=== PATIENT | male | born 1955 | race Two or more races ===

== ENCOUNTER 2023-05-25 01:35 | Emergency (ER) | payer OTHER ==
[~2023-05-25] VITALS: Ht 172.7 cm; Wt 185.0 kg
[2023-05-25 01:35] VITALS: O2SAT 95
[2023-05-25 02:10] LABS: Basophils # (auto) 0.1 10 ^3/uL (0-0.2); Basophils % (auto) 1.3 % (0.0-2.0); Eosinophils # (auto) 0.3 10 ^3/uL (0-0.8); Eosinophils % (auto) 4.6 % (0.0-7.0); Hematocrit 47.4 % (41.0-53.0); Hemoglobin 16.5 g/dL (13.5-17.5); Lymphocytes % (auto) 45.9 % (10.0-50.0); Mean Corpuscular Hemoglobin 32.8 pg (28.0-32.0); Mean Corpuscular Hgb Conc. 34.8 g/dL (32.0-36.0); Mean Corpuscular Volume 94.4 fL (80.0-100.0); Monocytes # (auto) 0.5 10 ^3/uL (0-1.3); Monocytes % (auto) 7.2 % (0.0-12.0); Neutrophils # (auto) 2.7 10 ^3/uL (1.6-8.6); Nucleated Red Blood Cells % 0.4 %; Red Blood Cells 5.02 10^6/uL (4.5-5.90); Red Cell Distribution Width 13.5 % (11.8-14.3); White Blood Cell 6.5 10^3/uL (4.4-10.8)
[2023-05-25 02:30] LABS: INR 1.01 (0.9-1.15); Partial Thromboplastin Time 26.5 SEC (24.5-34.5); Prothrombin Time 10.6 sec (9.3-11.8)
[2023-05-25 02:32] LABS: Albumin 3.9 g/dL (3.4-5.0); BUN/Creatinine Ratio 14.7 (10.0-20.0); Calcium 9.1 mg/dL (8.7-10.4); Magnesium 2.2 mg/dL (1.6-2.6); Potassium 4.4 mmol/L (3.5-5.1)
[2023-05-25 02:35] LABS: Bilirubin, Total 0.6 mg/dL (0.2-1.0); Total Protein 7.2 g/dL (6.4-8.2)
[2023-05-25 07:24] VITALS: BP 145/75; PULSE 61; RESP 18; TEMP 98.6
== END 2023-05-25 06:57 | disposition home or self-care (01) ==
LOC: ER 01:38
DX: R00.2 Palpitations (principal); I49.3 Ventricular premature depolarization; E78.5 Hyperlipidemia, unspecified; I10 Essential (primary) hypertension; R06.02 Shortness of breath; Z79.899 Other long term (current) drug therapy; Z79.01 Long term (current) use of anticoagulants
CPT/HCPCS: 36415; 71045; 80053; 83735; 83880; 84443; 84484; 85025; 85610; 85730; 93005

== ENCOUNTER 2024-12-13 17:14 | Inpatient (IN) | payer OTHER ==
[~2024-12-13] VITALS: Ht 172.7 cm; Wt 89.3 kg
[2024-12-13] VITALS (9 sets, daily range): BP systolic 108–140; BP diastolic 73–85; PULSE 57–74; RESP 14–19; TEMP 98–98.1; O2SAT 91–100
--- NOTE | 2024-12-13 17:20 | ED.PDOC ---
HPI Comments 69-year-old male with PMHx CAD, PTCA, Hypothyroidism, HTN brought in by EMS presents with a chief complaint of chest pain onset x 2 hours ago. Patient states that his pain is localized to his sternal chest, radiating to his bilateral arms, and describes as burning/pressure sensation. Patient states that he was at rest when onset of symptoms began and thought it was indigestion so he took some baking soda and also 324mg ASA. Patient has previous stents placed at [place]. EKG was sent to Dr. Gutierrez, on-call STEMI provider, and Dr. Gutierrez confirmed that EKG shows acute AR. CODE STEMI was called overhead, cath lab tech team present at EMS [facility] with ER provider. Time Seen by MD: 17:12 Reviewed Notes: Medications, Allergies Allergies: Coded Allergies: NO KNOWN ALLERGIES (Unverified , 05/25/23) Information Source: Patient, Emergency Med Personnel Mode of Arrival: EMS Severity: Moderate Timing: Hours Duration: Since onset Prehospital treatment: ASA (324mg) Location: Substernal Radiation: Arm (R), Arm (L) Quality: Pressure, Burning Onset: At Rest Cardiac Risk Factors: HTN PE Risk Factors: None History of: Similar pain in past, Aspirin, Other (CAD) Past Medical History PAST MEDICAL HISTORY: CAD, High Lipids, Thyroid Surgical History: PTCA Family History Family History: Reviewed,noncontributory to illness Social History Smoker: Non-Smoker Alcohol: Denies ETOH Use Drugs: Denies Drug Use Lives In: Home Constitutional: denies: chills, diaphoresis, fatigue, fever, malaise, sweats, weakness, others EENTM: denies: blurred vision, double vision, ear bleeding, ear discharge, ear drainage, ear pain, ear ringing, eye pain, eye redness, hearing loss, mouth pain, mouth swelling, nasal discharge, nose bleeding, nose congestion, nose pain, photophobia, tearing, throat pain, throat swelling, voice changes, others Respiratory: denies: cough, hemoptysis, orthopnea, SOB at rest, shortness of breath, SOB with excertion, stridor, wheezing, others Cardiovascular: reports: chest pain; denies: dizzy spells, diaphoresis, Dyspnea on exertion, edema, irregular heart beat, left arm pain, lightheadedness, palpitations, PND, syncope, others Gastrointestinal: denies: abdomen distended, abdominal pain, blood streaked bowels, constipated, diarrhea, dysphagia, difficulty swallowing, hematemesis, melena, nausea, poor appetite, poor fluid intake, rectal bleeding, rectal pain, vomiting, others Genitourinary: denies: burning, dysuria, flank pain, frequency, hematuria, in continence, penile discharge, penile sore, pain, testicle pain, testicle swelling, urgency, others Neurological: denies: dizziness, fainting, headache, left sided numbness, left sided weakness, numbness, paresthesia, pre-existing deficit, right sided numbness, right sided weakness, seizure, speech problems, tingling, tremors, weakness, others Musculoskeletal: denies: back pain, gout, joint pain, joint swelling, muscle pain, muscle stiffness, neck pain, others Integumetry: denies: bruises, change in color, change in hair/nails, dryness, laceration, lesions, lumps, rash, wounds, others Allergic/Immunocompromised: denies: Difficulty Healing, Frequent Infections, Hives, Itching, others Hematologic/Lymphatic: denies: anemia, blood clots, easy bleeding, easy bruising, swollen glands, others Endocrine: denies: excessive hunger, excessive sweating, excessive thirst, excessive urination, flushing, intolerance to cold, intolerance to heat, unexplained weight gain, unexplained weight loss, others Psychiatric: denies: anxiety, bipolar disorder, depression, hopeless, panic disorder, schizophrenia, sleepless, suicidal, others All Other Systems: Reviewed and Negative Physical Exam General Appearance: Moderate Distress, Normal HEENT: NOT DONE Neck: NOT DONE Respiratory: Chest Non-Tender, Lungs Clear, No Accessory Muscle Use, No Respiratory Distress, Normal Breath Sounds Cardiovascular: Other (EKG SHOWS STEMI; CONFIRMED WITH ON-CALL STEMI DOCTOR) Breast Exam: Deferred Gastrointestinal: NOT DONE Genitalia: Deferred Pelvic: Deferred Rectal: Deferred Extremities: No calf tenderness, Normal capillary refill, Normal inspection, Normal range of motion, Non-tender, No pedal edema Neurologic: Alert, senior product engineer II-XII nml as Tested, No Motor Deficits, Normal Affect, Normal Mood, No Sensory Deficits Cerebellar Function: NOT DONE Reflexes: NOT DONE Skin: Dry, Normal Color, Warm Lymphatic: NOT DONE Was a procedure done? Was a procedure done?: No CP Differential Dx Differential Diagnosis: AR, PAC's, PSVT, PVC's, Sinus Tachycardia Differential Diagnosis: HTN Essential, HTN Accelerated Differential Diagnosis: Angina, Gastritis, Myocardial Infarction Time of 1ST Reevaluation: 17:42 Reevaluation 1ST: Unchanged Patient Education/Counseling: Diagnosis, Treatment, Prognosis Family Education/Counseling: Diagnosis, Treatment, Prognosis Departure 1 Departure Time of Disposition: 17:24 (Patient presented with an acute AR. cath lab tech was emergently activated. Patient being taken to cath lab tech emergently by Dr. Gutierrez.) Impression: Primary Impression: STEMI (ST elevation myocardial infarction) Qualified Codes: I21.3 - ST elevation (STEMI) myocardial infarction of unspecified site Additional Impression: Acute chest pain Disposition: ADMITTED INPATIENT Admit to: Electrician Deck Condition: Critical Critical Care Note Critical Care Time?: Yes Critical care comment: STEMI Authorized and Performed by: Glenys Still MD Total critical care time: Approximately 33 minutes Due to a high probability of clinically significant, life threatening deterioration, the patient required my highest level of preparedness to intervene emergently and I personally spent this critical care time directly and personally managing the patient. This critical care time included obtaining a history; examining the patient; pulse oximetry; ordering and review of studies; arranging urgent treatment with development of a management plan; evaluation of patient's response to treatment; frequent reassessment; and, discussions with other providers. This critical care time was performed to assess and manage the high probability of imminent, life-threatening deterioration that could result in multi-organ failure. It was exclusive of separately billable procedures and treating other patients and teaching time. Please see my other sections and the rest of the note for further information on patient assessment and treatment. Stability Stability form required: No Heart Score Heart Score: Heart Score Response (Comments) Value History Highly Suspicious [address]-Deviation 2 Age >65 2 Risk Factors >3 or Hx ASHD 2 Troponin >3 x's Normal limit 2 Total 10 I personally scribed for GLENYS STILL MD ([email or web address]) on 12/13/24 at 17:20. Electronically submitted by Stephan Tran ([email or web address]). GLENYS STILL MD Dec 13, 2024 17:20
--- NOTE | 2024-12-13 17:24 | DVHINCON2 ---
Date Seen: Dec 13, 2024 Referring Physician MD Cheko Reason for Consultation STEMI History of Present Illness This is a 69-year-old male patient who presents to the emergency room with chief complaint of chest pain. The patient reports that the chest pain began at approximately 2:30 p.m. this afternoon. He describes it as unprovoked, constant, pressure-like in nature, and substernal without radiation. Associated symptoms include shortness of breath. The patient called EMS who was brought to the emergency room for further evaluation. While en route to the emergency room, EMS personnel obtained a cardiac strip which revealed STEMI. The patient was given 324 mg of aspirin orally once by EMS personnel. Upon emergency room arrival, a twelve lead electrocardiogram was obtained and revealed normal sinus rhythm with inferior lead ST-elevation myocardial infarction. No labs available at time of assessment given that patient was just brought in via EMS. The patient was loaded with IV heparin bolus 5000 units one time as well as a one time 300 mg of Plavix orally. Significant past medical history includes coronary artery disease status post PTCA x2 ROSALINA (on ASA), myocardial infarction, hypertension, dyslipidemia, and thyroid disease. The patient does not follow up with Cardiology in the outpatient setting. Past Medical History Past medical history reviewed. No other significant than mentioned above. Past Surgical History Denies Family History Family history reviewed. Social History Denies the use of tobacco, alcohol or illicit drugs. Allergies: Coded Allergies: NO KNOWN ALLERGIES (Unverified , 05/25/23) Home Meds Home medications reviewed. Review of Systems Constitutional: No symptom reported Ears, Nose, & Throat: No symptom reported Eyes: No symptom reported Neurological: No symptoms reported Pulmonary/Respiratory: Shortness of breath Cardiovascular: Chest pain Gastrointestinal: No symptom reported Genitourinary: No symptom reported Musculoskeletal: No symptom reported Skin: No symptom reported Psychiatric: No symptom reported Endocrine: No symptom reported Hematologic/Lymphatic: No symptom reported Physical Exam General Appearance: Cooperative. Well-developed. Well-nourished. No acute distress. Pulmonary/Respiratory: Clear, bilateral breaths sounds. Cardiovascular/Chest: Regular rate and rhythm. Peripheral Pulses: 2+ Radial (R). 2+ Radial (L). 2+ Pedal (R). 2+ Pedal (L) Abdominal Exam: Normal bowel sounds. Ankle Exam: Negative ankle edema Lower extremities: Negative lower extremity edema Neuro/Mental Status: A/OX4, coherent. Thoughts/Psych: Normal thought pattern. Appropriate mood and affect. Good judgment and insight. Appearance: No acute distress. Skin Exam: Normal inspection. Normal color. Warm and dry. Assessment Acute ST-elevation myocardial infarction, rule out progressive coronary artery disease Coronary artery disease status post PTCA x2 ROSALINA (on ASA) Rule out structural heart disease Myocardial infarction Hypertension Dyslipidemia Thyroid disease Plan/Recommendation We will continue with the following plan/recommendations (Dr. Gutierrez): Case discussed with . The patient will be emergently taken for a left heart catheterization. The procedure was discussed in full detail with the patient including possible risks and benefits. The patient is agreeable to undergo the procedure and will be taken at first available. Thank you for allowing us to care for this patient. Please call with any questions or c oncerns. Critical care time spent: 44 minutes This medical document was created using an electronic medical record system with voice recognition software and computerized dictation system. Although this document has been carefully reviewed, there might still be some phonetic and typographical errors. Occasional wrong-word or ``sound-alike substitutions may have occurred due to the inherent limitations of voice recognition software. These areas are purely typographical due to imperfections of the software programs and do not reflect any compromise in the patient's medical care. Please read the chart carefully and recognize, using context, where these substitutions have occurred. Plan discussed with: Patient NYHA Physical activity limitations: NA Date of Service: Dec 13, 2024 Billing Provider: MARK FLORES Cardiology Common Codes: 10966-DQAXFGD INP/OBS CARE (High) Cardiology Consultation Codes: 31393-[id number] CONSULT <45MIN MARK FLORES Dec 13, 2024 17:24
[2024-12-13] MEDS: NITROGLYCERIN 0.4MG/DOSE SPRAY 4.9GM ONE (17:46)
--- NOTE | 2024-12-13 17:54 | DVH ---
INDICATION: stemi TECHNIQUE: Frontal view of the chest. COMPARISON: XY CHEST PORTABLE on DOS: 05/25/23 FINDINGS: . The heart and mediastinal contours are grossly unremarkable. There is no evidence of pleural disea se. The lungs are clear. The bony structures of the chest are intact without fracture. IMPRESSION: 1. No evidence of acute disease.
--- NOTE | 2024-12-13 18:09 | DVHHP2 ---
History of Present Illness Reason for Visit: Chest Pain History of Present Illness This is a 69-year-old male patient with a PMHx of CAD s/p PCI, HTN, Dyslipidemia, and Hypothyroid who who presented to the emergency room with chief complaint of chest pain. The patient reports that the chest pain began at approximately 2:30 p.m. this afternoon. He describes it as unprovoked, constant, pressure-like in nature, and substernal without radiation. Associated symptoms include shortness of breath. The patient called EMS who was brought to the emergency room for further evaluation. While en route to the emergency room, EMS personnel obtained a cardiac strip which revealed STEMI. The patient was given 324 mg of aspirin orally once by EMS personnel. Upon emergency room arrival, a twelve lead electrocardiogram was obtained and revealed normal sinus rhythm with inferior lead ST-elevation myocardial infarction. No labs available at time of assessment given that patient was just brought in via EMS. The patient was loaded with IV heparin bolus 5000 units one time as well as a one time 300 mg of Plavix orally. Patient was emergently taken to the salvage laborer. Review of Systems Constitutional: No: Fever, Chills, Sweats, Weakness, Malaise, Other Eyes: No: Pain, Vision change, Conjunctivae inflammation, Eyelid inflammation, Other, Redness ENT: No: Ear pain, Ear discharge, Nose pain, Nose discharge, Nose congestion, Mouth pain, Mouth swelling, Throat pain, Throat swelling, Other Respiratory: No: Cough, Dry, Shortness of breath, SOB with excertion, Wheezing, Hemoptysis, Pleuritic Pain, Sputum, Wheezing, Other Cardiovascular: Chest Pain, Palpitations Gastrointestinal: No: Nausea, Vomiting, Abdominal Pain, Diarrhea, Constipation, Melena, Hematochezia, Other Genitourinary: No Dysuria, No Frequency, No Incontinence, No Hematuria, No Retention, No Other Musculoskeletal: No: other, neck pain, shoulder pain, arm pain, back pain, hand pain, leg pain, foot pain Skin: No: Rash, Lesions, Jaundice, Bruising, Other Neurological: No: Weakness, Numbness, Incoordination, Change in speech, Confusion, Seizures, Other Allergies: Coded Allergies: NO KNOWN ALLERGIES (Unverified , 05/25/23) Exam Vital Signs Vital Signs Date Time Temp Pulse Resp B/P (MAP) Pulse Ox O2 Delivery O2 Flow Rate FiO2 12/13/24 17:20 78 12/13/24 17:14 98.3 18 178/73 (108) 96 12/13/24 17:14 Room Air* 0 21 General Appearance: Alert, Oriented X3, Cooperative, moderate distress HEENT: Atraumatic Respiratory: Clear to auscultation, Normal air movement Cardiovascular: Regular rate, Normal S1, Normal S2 Abdominal: Normal bowel sounds, Soft Extremities: No clubbing Psych/Mental Status: Mental status NL Labs/Xrays Labs Test 12/13/24 17:23 Range/Units Assessment/Plan Assessment/Plan # Chest Pain due to STEMI - Emergent LHC # Hypothyroid - Resume Home Meds # HTN - Get home meds Unstable for transfer Plan discussed with: Patient My Orders Orders - JUAN ELLIOTT MD Procedure Category Date Status Time Complete Blood Count LAB 12/14/24 Verified 04:00 Comprehensive LAB 12/14/24 Verified Metabolic Panel 04:00 Atorvastatin (Lipitor) PHA 12/13/24 Transmitted 22:00 Admit ADMIT 12/13/24 Transmitted 18:04 Code Status CODE 12/13/24 Transmitted 18:04 Vital Signs GENESIS 12/13/24 Transmitted 18:04 Review Orders With GENESIS 12/13/24 Transmitted Adm. 18:04 Bedrest With Bathroom GENESIS 12/13/24 Transmitted Privileg 18:04 Regular Diet DIET 12/13/24 Transmitted Dinner Sodium Chloride Lock PHA 12/13/24 Transmitted (Saline Lock Ns) 22:00 Sodium Chloride 0.9% PHA 12/13/24 Transmitted 18:15 Lorazepam Tablet PHA 12/13/24 Transmitted (Ativan Tablet) 18:15 Acetaminophen Tablet PHA 12/13/24 Transmitted (Tylenol Tablet) 18:15 Notify Md Of Changes GENESIS 12/13/24 Transmitted From Base 18:04 Advance Directive GENESIS 12/13/24 Transmitted 18:04 Echo 2d Mode Cardiac US 12/13/24 Transmitted DOP 18:04 Urinalysis LAB 12/13/24 Transmitted 18:04 Patient Condition ORDERS 12/13/24 Transmitted 18:04 Allergies GENESIS 12/13/24 Transmitted 18:04 Hydrocodone-Acet PHA 12/13/24 Transmitted 5/325mg Tab ([place] 18:15 Ondansetron Hcl PHA 12/13/24 Transmitted (Zofran) 18:15 Morphine 2mg Iv Q4hprn PHA 12/13/24 Transmitted 18:15 Nitroglycerin PHA 12/13/24 Transmitted Sublingual (Ntrostat 18:15 Morphine Sulfate PHA 12/13/24 Transmitted Injection 18:15 Stat Ekg For Chest GENESIS 12/13/24 Transmitted Pain 18:04 Notify Md Of Changes [facility] [place] 12/13/24 Transmitted From Base 18:04 Machine Assembler For [facility] [place] 12/13/24 Transmitted 24 Hours 18:04 Emergency Dysrhythmia GENESIS 12/13/24 Transmitted Protocol 18:04 Rhythm Strips Once GENESIS 12/13/24 Transmitted Every Shift 18:04 Oxygen By Nasal RT 12/13/24 Transmitted Cannula 18:04 Date of Service: Dec 13, 2024 Billing Provider: JUAN ELLIOTT MD Common Visit Codes: [id number] INP/OBS CARE (HIGH) JUAN ELLIOTT MD Dec 13, 2024 18:09
[2024-12-13] MEDS ORDERED: NITROGLYCERIN 0.4 MG SL TAB SL PRN (18:15)
[2024-12-13] MEDS ORDERED: MORPHINE SULFATE INJ 2 MG/ml SYRG IV PRN (18:15)
[2024-12-13] MEDS ORDERED: LORazepam 0.5 MG TAB PO PRN (18:15)
[2024-12-13] MEDS ORDERED: ACETAMINOPHEN 325 MG TAB PO PRN (18:15)
[2024-12-13] MEDS ORDERED: ONDANSETRON HCL 4 MG/2 ML VIAL IV PRN (18:15)
[2024-12-13 18:22] LABS: Chloride 104 mmol/L (98-107); Potassium 4.7 mmol/L (3.5-5.1); Sodium 143 mmol/L (136-145)
[2024-12-13 18:23] LABS: Anion Gap 5 (5-15); Calcium 9.6 mg/dL (8.7-10.4)
[2024-12-13 18:25] LABS: Basophils # (auto) 0 10 ^3/uL (0-0.2); Basophils % (auto) 0.7 % (0.0-2.0); Carbon Dioxide 34 mmol/L (20-31); Eosinophils # (auto) 0.3 10 ^3/uL (0-0.8); Hematocrit 47.6 % (41.0-53.0); Hemoglobin 16.4 g/dL (13.5-17.5); Lymphocytes # (auto) 2.9 10 ^3/uL (0.4-5.4); Mean Corpuscular Hemoglobin 33.4 pg (28.0-32.0); Mean Corpuscular Hgb Conc. 34.5 g/dL (32.0-36.0); Mean Corpuscular Volume 96.8 fL (80.0-100.0); Monocytes # (auto) 0.8 10 ^3/uL (0-1.3); Monocytes % (auto) 11.1 % (0.0-12.0); Neutrophils # (auto) 2.8 10 ^3/uL (1.6-8.6); Neutrophils % (auto) 41.2 % (37.0-80.0); Nucleated Red Blood Cells % 0.3 %; Platelet Count (auto) 137 10^3/uL (140-450); Red Blood Cells 4.92 10^6/uL (4.5-5.90); Red Cell Distribution Width 13.4 % (11.8-14.3); White Blood Cell 6.8 10^3/uL (4.4-10.8)
[2024-12-13 18:28] LABS: BUN/Creatinine Ratio 15.9 (10.0-20.0); Blood Urea Nitrogen 20 mg/dL (9-23)
[2024-12-13 18:29] LABS: Glucose 118 mg/dL (74-106)
[2024-12-13 18:42] LABS: Partial Thromboplastin Time 24.7 SEC (24.5-34.5); Prothrombin Time 10.6 sec (9.3-11.8)
--- NOTE | 2024-12-13 18:53 | ECG ---
[facility] Test Date: 2024-12-13 Test Time: 17:15:25 Pat Name: KRISHAN ARNETT Department: ED Room: 0279T Gender: M Vp Integrity: KAVITA : 1955 Requested By: GLENYS BARRAZA Order Number: [id number] Reading MD: Haseeb Gutierrez Measurements Intervals [place] Rate: 78 P: 77 GA: 146 QRS: -48 QRSD: 104 T: 90 QT: 390 QTc: 445 Interpretive Statements Sinus rhythm Ventricular premature complex Abnormal R-wave progression, late transition Inferior infarct, acute (RCA) Lateral leads are also involved Probable RV involvement, suggest recording right precordial leads Electronically Signed On 12-16-2024 19:02:11 PDT by Haseeb Gutierrez Please click the below link to view image of tracing.
--- NOTE | 2024-12-13 19:16 | DVHOP2 ---
Operative Report - 2 Report Details Date: 12/13/24 Preop Diagnosis: Acute ST-elevation myocardial infarction Postop Diagnosis: PTCA and stenting of the circumflex and LAD. Intravascular ultrasound evaluation of the circumflex and LAD. Surgeon: Delicia Gutierrez MD Anesthesiologist: Conscious sedation Anesthesia: Mac, Local (Versed and fentanyl were ordered for the patient. Personally supervised the administration and monitor the patient throughout the entirety of the procedure) Consent: The patient was informed of the risks and benefits of the procedure. These include but are not limited to complications of anesthesia, postoperative infection, incomplete relief of symptoms, recurrence of symptoms, damage to blood vessels, nerves and tendons, deep venous thrombosis, pulmonary embolism and possible need for repeat surgery in the future. Complications: No complications Estimated Blood Loss: 10 cc Findings: CAD Indications for Surgery: Acute NH. Chest pain. Name of Procedure Performed Left heart catheterization bilateral cine coronary angiography and left ventriculography. Intravascular ultrasound evaluation of the left anterior descending coronary artery and circumflex coronary artery. Procedure Details Procedure Details: Prior local anesthesia with 2% lidocaine to the right wrist and full informed consent obtained the patient was prepped and draped in usual fashion followed by placement of a six [place] Islander sheath into the right radial artery through which a 3.5 EBU guide was used for angiography and cannulation both right coronary ostium as well as ventriculography. No complications. Angioplasty was performed with the same guide as will be delineated below. Hemodynamics: Aortic blood pressure was 130/70. End-diastolic pressure was 10. There was no gradient across the aortic valve on pullback. Coronary anatomy the RCA is a large vessel. It tapers down to a small to medium vessel in the posterolateral and PDA. Notable disease noted in the PDA and posterolateral branches this is small not amenable to angioplasty. The RCA in its proximal mid and distal segments are otherwise free of significant disease with only moderate plaquing. The left main is large. Angiographic appears normal. The circumflex has an ostial 50-60% stenosis. The mid circumflex at the marginal branch has a 99% stenosis with a ruptured plaque. The circumflex proper ends distally in the AV groove. The left anterior descending coronary artery is in stent restenosis in its proximal portion with an ostial lesion of about 70-80% and a in stent restenosis in the proximal LAD of about 75-80%. Intravascular ultrasound device from [employer] was used to assess the circumflex and left anterior descending coronary arteries. We also assessed the left mainstem since there was dampening of the left main pressures with a six [place]er guide. Minimal lumen diameter of the left main was 5.8 cm squared. Lesion in the circumflex and LAD were also evaluated and found to be significant. Ventriculography was performed in the GAMEZ projection. Overall estimated ejection fraction is about 55% We opted to pre dilate the lesion in the circumflex with a 2.5 mm x 20 mm Medtronic balloon. At approximately 12 atmospheres with excellent results. We then placed a 3-0 by 22 mm stent into the circumflex. There was excellent results. Upon pulling the balloon noticed that there was a lesion ostial circumflex considered to be a proximally 75-80% stenosis. We then placed a 3-0 by 12 mm stent into ostium of the circumflex. This pushed plaque into the left anterior descending for which we then placed a altered vascular ultrasound in the LAD and noticed that there was significant residual recoil and restenosis of the LAD at the ostial level. We then did a balloon kissing technique by placing a 3-0 by 12 mm stent into the LAD and placing a noncompliant balloon into the circumflex. These were inflated to approximately 13 atmospheres each. There was excellent antegrade flow without thrombus formation under dissection. Impression: Normal left ventricular end-diastolic pressure at rest normal ejection fraction. Two-vessel CAD as delineated above with restenosis of the LAD and a ruptured plaque mid circumflex. Residual lesion in the ostial circumflex requiring kissing balloon technique stenting of the LAD and circumflex. Atherotomy of the proximal LAD with InStent restenosis with the [employer]io[employer] balloon. Recommendations: Dual antiplatelet therapy. Lipid-lowering therapy. Risk factor modification to continue. Condition Good Disposition Still a Patient Date of Service: Dec 13, 2024 Billing Provider: DELICIA GUTIERREZ Sr., MD Cardiology Common Codes: 03189-SEXPREU INP/OBS CARE (High) Cardiology Procedure Codes: 97334-EBCYUA VESSEL W/I VASC FAM, 02916 -PTCA W/STENT PLACEMENT, 65774-NWGX ADD CORONARY BRANCH, 58470-JVNA FOR STEMI W/STENT, 69138-VXEB HEART CATH W/INTRA INJ DELICIA GUTIERREZ Sr., MD Dec 13, 2024 19:16
[2024-12-13] MEDS: SODIUM CHLORIDE 0.9% 1,000 ML IV SCH (20:10)
[2024-12-13] MEDS: ATORVASTATIN 20 MG TAB PO SCH (20:56)
[2024-12-13] MEDS: HYDROcodone-ACET 5/325MG TAB PO PRN (20:57)
[2024-12-13] MEDS: MORPHINE SULFATE INJ 2 MG/ml SYRG IV PRN (22:04)
[2024-12-13] MEDS: SODIUM CHLOR 0.9% PF (SALINE LOCK) 10ML VIAL/SYR IV SCH (22:15)
--- NOTE | 2024-12-13 22:53 | ECG ---
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
[2024-12-13 22:54] LABS: Urine Bacteria None Seen /hpf (None Seen)
[2024-12-13 23:15] LABS: Urine Blood Negative /uL (Negative); Urine Clarity Clear (Clear); Urine Color Light-Yellow (Yellow); Urine Protein, UAD 1+ (Negative); Urine Squamous Epithelial Cell None Seen /hpf (<5); Urine Urobilinogen Normal (Negative); Urine WBC < 1 /HPF (0-3); Urine pH 8.5 (5.0-9.0)
[2024-12-13 23:17] LABS: Urine Specific Gravity > 1.050 (1.001-1.035)
[2024-12-13] MEDS: FAMOTIDINE (10MG/ML) 2ML VL IV ONE (23:44)
[2024-12-13] MEDS: cloNIDine HCL 0.1 MG TAB PO ONE (23:51)
[2024-12-14] VITALS (12 sets, daily range): BP systolic 109–157; BP diastolic 64–87; PULSE 55–63; RESP 17–20; TEMP 97.9–98.7; O2SAT 96–100
[2024-12-14] MEDS ORDERED: TERA10CA36 PO (03:13)
[2024-12-14] MEDS ORDERED: ASPI1TAB20 PO (03:13)
[2024-12-14] MEDS ORDERED: LEVO112T4 PO (03:13)
[2024-12-14 07:32] LABS: Alkaline Phosphatase 55 U/L (46-116); Anion Gap 5 (5-15); BUN/Creatinine Ratio 12.8 (10.0-20.0); Blood Urea Nitrogen 14 mg/dL (9-23); Calcium 9.3 mg/dL (8.7-10.4); Carbon Dioxide 28 mmol/L (20-31); Chloride 106 mmol/L (98-107); Glucose 98 mg/dL (74-106); Potassium 4.5 mmol/L (3.5-5.1); Sodium 139 mmol/L (136-145); Total Protein 6.6 g/dL (5.7-8.2)
[2024-12-14 07:33] LABS: Bilirubin, Total 0.5 mg/dL (0.2-1.0)
[2024-12-14 07:35] LABS: Alanine Aminotransferase 44 U/L (7-40); Aspartate Aminotransferase 232 U/L (13-40)
[2024-12-14 07:38] LABS: Basophils # (auto) 0.1 10 ^3/uL (0-0.2); Basophils % (auto) 0.9 % (0.0-2.0); Eosinophils # (auto) 0.2 10 ^3/uL (0-0.8); Eosinophils % (auto) 3.7 % (0.0-7.0); Hemoglobin 15.5 g/dL (13.5-17.5); Lymphocytes # (auto) 2.1 10 ^3/uL (0.4-5.4); Lymphocytes % (auto) 32.8 % (10.0-50.0); Mean Corpuscular Hemoglobin 33.3 pg (28.0-32.0); Mean Corpuscular Hgb Conc. 34.5 g/dL (32.0-36.0); Mean Corpuscular Volume 96.4 fL (80.0-100.0); Monocytes # (auto) 0.7 10 ^3/uL (0-1.3); Monocytes % (auto) 11.2 % (0.0-12.0); Neutrophils # (auto) 3.3 10 ^3/uL (1.6-8.6); Neutrophils % (auto) 51.4 % (37.0-80.0); Nucleated Red Blood Cells % 0.1 %; Platelet Count (auto) 114 10^3/uL (140-450); Red Blood Cells 4.66 10^6/uL (4.5-5.90); White Blood Cell 6.4 10^3/uL (4.4-10.8)
[2024-12-14] MEDS: CLOPIDOGREL BISULFATE 75 MG TAB PO ONE (09:32)
[2024-12-14] MEDS: HEPARIN SODIUM (PORCINE) 5000 UNITS/ML 1ML VIAL IV ONE (09:32)
[2024-12-14] MEDS: ASPirin 81 mg TAB PO SCH (09:32)
[2024-12-14] MEDS: LISINOPRIL 5 MG TAB PO SCH (09:41)
[2024-12-14] MEDS: CLOPIDOGREL BISULFATE 75 MG TAB PO SCH (09:42)
[2024-12-14] MEDS: METOPROLOL SUCCINATE XL 50 MG TAB PO SCH (09:42)
--- NOTE | 2024-12-14 17:39 | DVHPN2 ---
Progress Note Date Seen: Dec 14, 2024 Medical Necessity Reason Pt with a Central, PICC or Fol: No Subjective Patient reports: No new complaints Review of Systems: HEENT:Normal, CVS:Normal, RESPIRATORY:Normal, GI:Normal, :Normal, MSK:Normal, NEURO:Normal Objective vital signs Vital Sign Date Time Temp Pulse Resp B/P (MAP) Pulse Ox O2 Delivery O2 Flow Rate FiO2 12/14/24 16:33 98.6 56 18 109/69 (82) 100 98.6 12/14/24 08:30 Nasal Cannula* 2 28 Total Intake and Output 12/13/24 12/13/24 12/14/24 15:00 23:00 07:00 Intake Total 500 ml Balance 500 ml medications Current Medications Medications Dose Ordered Sig/Colby Route Start Time Stop Time Status Last Admin Dose Admin Atorvastatin Calcium 80 mg HS PO 12/13/24 22:00 12/13/24 20:56 80 MG Sodium Chloride 10 ml Q8HR IV 12/13/24 22:00 12/14/24 14:44 10 ML Sodium Chloride 1,000 ml @ 60 mls/hr [id number] IV 12/13/24 18:15 12/13/24 20:10 60 MLS/HR Lorazepam 0.5 mg Q6HP PRN PO 12/13/24 18:15 Acetaminophen 650 mg Q6HP PRN PO 12/13/24 18:15 Acetaminophen/ Hydrocodone Bitart 1 tab Q4HP PRN PO 12/13/24 18:15 12/13/24 20:57 1 TAB Ondansetron HCl 4 mg Q4HP PRN IV 12/13/24 18:15 Morphine Sulfate 2 mg Q4HPRN PRN IV 12/13/24 18:15 12/13/24 22:04 2 MG Nitroglycerin 0.4 mg Q5MINP PRN SL 12/13/24 18:15 Morphine Sulfate 2 mg Q30M PRN IV 12/13/24 18:15 Clopidogrel Bisulfate 75 mg DAILY PO 12/14/24 10:00 12/14/24 09:42 75 MG Aspirin 81 mg DAILY PO 12/14/24 10:00 12/14/24 09:32 81 MG Metoprolol Succinate 25 mg DAILY PO 12/14/24 10:00 12/14/24 09:42 25 MG Lisinopril 5 mg DAILY PO 12/14/24 10:00 12/14/24 09:41 5 MG Examination: GENERAL:Normal, HEENT:Normal, NECK:Normal, LUNGS:Normal, CVS:Normal, ABDOMEN:Normal, MSK:Normal, SKIN:Normal, NEURO:Normal, :Normal laboratory and microbiology Laboratory Tests 12/14/24 06:48 Test 12/14/24 06:48 Range/Units Serum Glucose 98 74-106 mg/dL Problem List/Assessment/Plan Problem List/Assessment/Plan #1 acute mi s/p stents: cont meds #2 h/o cad/stents #3 htn #4 hypothyroidism: check tsh #5 hyperlipidemia #6 ?bph: on hytrin #7 transaminitis #8 acute resp failure: wean as tolerated advance care planning- full code- time spent 19 mins Plan discussed with: Patient My Orders My Orders Orders - FAN LEACH MD Procedure Category Date Status Time Cardiac DIET 12/14/24 Verified Diet-2gna,Lofat,Lochol Dinner Levothyroxine Tablet PHA 12/15/24 Verified (Synthroid Tablet) 06:00 Terazosin Hcl (Hytrin) PHA 12/14/24 Verified 22:00 Complete Blood Count LAB 12/15/24 Verified 06:00 Comprehensive LAB 12/15/24 Verified Metabolic Panel 06:00 Thyroid Stimulating LAB 12/15/24 Verified Hormone 05:00 Lipid Panel LAB 12/15/24 Verified 06:00 Date of Service: Dec 14, 2024 Billing Provider: FAN LEACH MD Common Visit Codes: [id number] INP/OBS CARE(HIGH) Secondary Visit Codes: [id number] CARE PLAN 30 MINUTES FAN LEACH MD Dec 14, 2024 17:39
--- NOTE | 2024-12-14 18:26 | DVHPN2 ---
Consult Progress Note Subjective Other Systems: Patient in normal sinus rhythm on front desk monitor. Patient reports intermittent episodes of chest pain Objective vital signs Vital Sign Date Time Temp Pulse Resp B/P (MAP) Pulse Ox O2 Delivery O2 Flow Rate FiO2 12/14/24 16:33 98.6 56 18 109/69 (82) 100 98.6 12/14/24 08:30 Nasal Cannula* 2 28 Total Intake and Output 12/13/24 12/13/24 12/14/24 15:00 23:00 07:00 Intake Total 500 ml Balance 500 ml medications Current Medications Medications Dose Ordered Sig/Colby Route Start Time Stop Time Status Last Admin Dose Admin Atorvastatin Calcium 80 mg HS PO 12/13/24 22:00 12/13/24 20:56 80 MG Sodium Chloride 10 ml Q8HR IV 12/13/24 22:00 12/14/24 14:44 10 ML Lorazepam 0.5 mg Q6HP PRN PO 12/13/24 18:15 Acetaminophen 650 mg Q6HP PRN PO 12/13/24 18:15 Acetaminophen/ Hydrocodone Bitart 1 tab Q4HP PRN PO 12/13/24 18:15 12/13/24 20:57 1 TAB Ondansetron HCl 4 mg Q4HP PRN IV 12/13/24 18:15 Morphine Sulfate 2 mg Q4HPRN PRN IV 12/13/24 18:15 12/13/24 22:04 2 MG Nitroglycerin 0.4 mg Q5MINP PRN SL 12/13/24 18:15 Morphine Sulfate 2 mg Q30M PRN IV 12/13/24 18:15 Clopidogrel Bisulfate 75 mg DAILY PO 12/14/24 10:00 12/14/24 09:42 75 MG Aspirin 81 mg DAILY PO 12/14/24 10:00 12/14/24 09:32 81 MG Metoprolol Succinate 25 mg DAILY PO 12/14/24 10:00 12/14/24 09:42 25 MG Lisinopril 5 mg DAILY PO 12/14/24 10:00 12/14/24 09:41 5 MG Levothyroxine Sodium 112 mcg QAM@0600 PO 12/15/24 06:00 Terazosin HCl 10 mg HS PO 12/14/24 22:00 Examination: GENERAL:Normal, LUNGS:Normal, CVS:Normal, NEURO:Normal laboratory and microbiology Laboratory Tests 12/14/24 06:48 Test 12/14/24 06:48 Range/Units Serum Glucose 98 74-106 mg/dL Problem List/Assessment/Plan Problem List/Assessment/Plan Acute ST-elevation myocardial infarction, status PTCA x2 ROSALINA Coronary artery disease status post PTCA x2 ROSALINA (on ASA) Rule out structural heart disease Myocardial infarction Hypertension Dyslipidemia Thyroid disease Plan/Recommendation (Dr. Gutierrez): Case discussed with . We will obtain a transthoracic echocardiogram to evaluate cardiac function. The patient who came in as a STEMI underwent an emergent coronary angiogram in which two drug-eluting stents were placed (to circumflex and LAD). At the time of assessment, the patient reports that he has been intermittently experiencing chest pain. Given recent coronary angiogram, patient likely experiencing acute pericarditis. We will give patient a trial of Toradol to assess if it improves patients pain. In the meantime, continue with dual antiplatelet therapy, lipid-lowering agent, beta-francisco j, and ACEi. Thank you for allowing us to care for this patient. Please call with any questions or concerns. This medical document was created using an electronic medical record system with voice recognition software and computerized dictation system. Although this document has been carefully reviewed, there might still be some phonetic and typographical errors. Occasional wrong-word or ``sound-alike substitutions may have occurred due to the inherent limitations of voice recognition software. These areas are purely typographical due to imperfections of the software programs and do not reflect any compromise in the patient's medical care. Please read the chart carefully and recognize, using context, where these substitutions have occurred. Plan discussed with: Patient Date of Service: Dec 14, 2024 Billing Provider: MARK FLORES Common Visit Codes: [id number] INP/OBS CARE(HIGH) MARK FLORES Dec 14, 2024 18:26
[2024-12-14] MEDS ORDERED: KETOROLAC TROMETH 30 MG/ML 1ML VIAL IV PRN (18:30)
--- NOTE | 2024-12-14 18:49 | DVHSR ---
APPROVED REPORT EXAM: Two-dimensional and M-mode echocardiogram with Doppler and color Doppler. Blood Pressure: 129/81 mmHg INDICATION STEMI RISK FACTORS Height: 5'8", Weight: 192 DIMENSIONS LVDd4.5 (3.8-5.7cm)LA (2D)3.0 (1.9-4.0cm)Aortic Root2.9 (2.0-3.7cm) LVDs3.4 (2.5-4.0cm)LA (MM) (1.9-4.0cm)Aortic Cusp Exc1.6 (1.5-2.0cm) EF (%) 47.0 (55-70%)Rt. Atrium4.1 (1.9-4.0cm)Asc. Aorta3.3 cm IVSd1.1 (0.7-1.1cm)RV (D)2.9 (1.8-2.4cm) PWd0.9 (0.7-1.1cm) Mitral Valve MitralMitral Stenosis E wave0.73m/sMV Mean GR.mmHg A wave0.80m/sMV Peak GR.mmHg E/A ratio0.92D MVAcm2 DECEL [id number] 1/2 Timems Aortic Valve Aortic ValveAortic Stenosis V11.16m/Kayden Mean GR.5mmHg V21.58m/Kayden Peak GR.10mmHg LVOT Diameter2.0 (1.8-2.4cm)Doppler AVA2.31cm2 Pulmonic Valve V21.21m/s Other Information Quality : Technically LimitedRhythm : Technically limited study due to body habitus. Conclusion Normal LV size. Mildly reduced LV systolic function. LVEF 45-50%. Hypokinesis of inferior and inferol ateral ruelas. Grade 1 diastolic dysfunction. Normal RV size and systolic function. No significant valvular disease. Trace PI. Normal IVC. No pericardial effusion.
[2024-12-14] MEDS: TERAZOSIN HCL 5 MG CAP PO SCH (21:45)
[2024-12-15 01:00] VITALS: BP 112/65; PULSE 58; RESP 18; TEMP 98.2; O2SAT 95
[2024-12-15 05:00] VITALS: BP 115/67; PULSE 61; RESP 18; TEMP 98.3; O2SAT 96
[2024-12-15] MEDS: LEVOTHYROXINE SODIUM 112 MCG TAB PO SCH (05:24)
[2024-12-15 05:53] LABS: Basophils # (auto) 0 10 ^3/uL (0-0.2); Basophils % (auto) 0.7 % (0.0-2.0); Eosinophils # (auto) 0.3 10 ^3/uL (0-0.8); Eosinophils % (auto) 4.5 % (0.0-7.0); Hematocrit 42.8 % (41.0-53.0); Hemoglobin 14.8 g/dL (13.5-17.5); Lymphocytes # (auto) 2.3 10 ^3/uL (0.4-5.4); Lymphocytes % (auto) 34.4 % (10.0-50.0); Mean Corpuscular Hemoglobin 33.9 pg (28.0-32.0); Mean Corpuscular Hgb Conc. 34.6 g/dL (32.0-36.0); Monocytes # (auto) 0.7 10 ^3/uL (0-1.3); Monocytes % (auto) 10.2 % (0.0-12.0); Neutrophils # (auto) 3.3 10 ^3/uL (1.6-8.6); Neutrophils % (auto) 50.2 % (37.0-80.0); Platelet Count (auto) 105 10^3/uL (140-450); Red Blood Cells 4.37 10^6/uL (4.5-5.90); White Blood Cell 6.6 10^3/uL (4.4-10.8)
[2024-12-15 06:12] LABS: Alanine Aminotransferase 39 U/L (7-40); Albumin 3.9 g/dL (3.2-4.8); Alkaline Phosphatase 49 U/L (46-116); Anion Gap 8 (5-15); BUN/Creatinine Ratio 11.9 (10.0-20.0); Bilirubin, Total 0.7 mg/dL (0.2-1.0); Blood Urea Nitrogen 13 mg/dL (9-23); Calcium 9.5 mg/dL (8.7-10.4); Carbon Dioxide 24 mmol/L (20-31); Glucose 94 mg/dL (74-106); Potassium 4.5 mmol/L (3.5-5.1); Sodium 139 mmol/L (136-145); Total Protein 6.4 g/dL (5.7-8.2)
[2024-12-15 06:18] LABS: Aspartate Aminotransferase 144 U/L (13-40); Chloride 107 mmol/L (98-107); Cholesterol 209 mg/dL (< 200); HDL Cholesterol 35 mg/dL (40-59); LDL Cholesterol 151 mg/dL (< 100); Triglycerides 187 mg/dL (< 150)
[2024-12-15 08:05] VITALS: PULSE 55
[2024-12-15 09:03] VITALS: BP 122/73; PULSE 56; RESP 16; TEMP 98; O2SAT 96
--- NOTE | 2024-12-15 11:44 | DVHPN2 ---
Consult Progress Note Subjective Patient reports: Feels better Other Systems: Patient in sinus bradycardia on hospital monitor. Denies any cardiac symptoms at time of assessment Objective vital signs Vital Sign Date Time Temp Pulse Resp B/P (MAP) Pulse Ox O2 Delivery O2 Flow Rate FiO2 12/15/24 10:05 122/73 12/15/24 10:00 54 12/15/24 09:03 98.0 16 96 98.0 12/15/24 08:05 Nasal Cannula* 2 28 Total Intake and Output 12/14/24 12/14/24 12/15/24 15:00 23:00 07:00 Intake Total 540 ml 230 ml Output Total 250 ml 475 ml Balance -250 ml 65 ml 230 ml medications Current Medications Medications Dose Ordered Sig/Colby Route Start Time Stop Time Status Last Admin Dose Admin Atorvastatin Calcium 80 mg HS PO 12/13/24 22:00 12/14/24 21:48 80 MG Sodium Chloride 10 ml Q8HR IV 12/13/24 22:00 12/15/24 05:24 10 ML Lorazepam 0.5 mg Q6HP PRN PO 12/13/24 18:15 Acetaminophen 650 mg Q6HP PRN PO 12/13/24 18:15 Ondansetron HCl 4 mg Q4HP PRN IV 12/13/24 18:15 Morphine Sulfate 2 mg Q4HPRN PRN IV 12/13/24 18:15 12/13/24 22:04 2 MG Nitroglycerin 0.4 mg Q5MINP PRN SL 12/13/24 18:15 Morphine Sulfate 2 mg Q30M PRN IV 12/13/24 18:15 Clopidogrel Bisulfate 75 mg DAILY PO 12/14/24 10:00 12/15/24 10:04 75 MG Aspirin 81 mg DAILY PO 12/14/24 10:00 12/15/24 10:04 81 MG Metoprolol Succinate 25 mg DAILY PO 12/14/24 10:00 12/14/24 09:42 25 MG Lisinopril 5 mg DAILY PO 12/14/24 10:00 12/15/24 10:05 5 MG Levothyroxine Sodium 112 mcg QAM@0600 PO 12/15/24 06:00 12/15/24 05:24 112 MCG Terazosin HCl 10 mg HS PO 12/14/24 22:00 3/13/25 21:45 10 MG Ketorolac Tromethamine 15 mg Q6HPRN PRN IV 12/14/24 18:30 12/19/24 18:29 Examination: GENERAL:Normal, LUNGS:Normal, CVS:Normal, NEURO:Normal laboratory and microbiology Laboratory Tests 12/15/24 05:19 Test 12/15/24 05:19 Range/Units Serum Glucose 94 74-106 mg/dL Problem List/Assessment/Plan Problem List/Assessment/Plan Acute ST-elevation myocardial infarction, status PTCA x2 ROSALINA Coronary artery disease status post PTCA x2 ROSALINA (on ASA) Acute on chronic HFmrEF, NYHA class II Myocardial infarction Hypertension Dyslipidemia Thyroid disease Plan/Recommendation (Dr. Gutierrez): Case discussed with . Transthoracic echocardiogram reveals an EF of 45- 50% with hypokinesis of the inferior and inferolateral ruelas. The patient who came in as a STEMI underwent an emergent coronary angiogram in which two drug- eluting stents were placed (to circumflex and LAD). Continue with dual antiplatelet therapy, lipid-lowering agent, beta-francisco j, and ACEi. There is no further inpatient cardiac workup indicated at this time. The patient states he will follow up with a wheel setter within the [facility]. Patient educated to follow up with a wheel setter within 1-2 weeks post discharge. The patient verbalized understanding. Thank you for allowing us to care for this patient. Please call with any questions or concerns. This medical document was created using an electronic medical record system with voice recognition software and computerized dictation system. Although this document has been carefully reviewed, there might still be some phonetic and typographical errors. Occasional wrong-word or ``sound-alike substitutions may have occurred due to the inherent limitations of voice recognition software. These areas are purely typographical due to imperfections of the software programs and do not reflect any compromise in the patient's medical care. Please read the chart carefully and recognize, using context, where these substitutions have occurred. Plan discussed with: Patient Date of Service: Dec 15, 2024 Billing Provider: MARK FLORES Common Visit Codes: [id number] INP/OBS CARE(HIGH) MARK FLORES Dec 15, 2024 11:44
[2024-12-15 13:00] VITALS: BP 123/76; PULSE 54; RESP 18; TEMP 97.8; O2SAT 97
[2024-12-15] MEDS ORDERED: LISI-275 PO (13:18)
[2024-12-15] MEDS ORDERED: METO-6 PO (13:18)
[2024-12-15] MEDS ORDERED: CLOP75TA70 PO (13:18)
[2024-12-15] MEDS ORDERED: ATOR20TA50 PO (13:18)
--- NOTE | 2024-12-15 13:18 | DVHDS2 ---
Discharge Summary Date of Admission Dec 13, 2024 at 18:04 Date of Discharge: Dec 15, 2024 Admitting Diagnosis STEMI Labs/Diagnostic Data: Laboratory Results Test 12/15/24 05:19 12/13/24 23:23 12/13/24 22:25 12/13/24 17:23 White Blood Count 6.6 10^3/uL (4.4-10.8) Red Blood Count 4.37 10^6/uL (4.5-5.90) Hemoglobin 14.8 g/dL (13.5-17.5) Hematocrit 42.8 % (41.0-53.0) Mean Corpuscular Volume 98.0 fL (80.0-100.0) Mean Corpuscular Hemoglobin 33.9 pg (28.0-32.0) Mean Corpuscular Hemoglobin Concent 34.6 g/dL (32.0-36.0) Red Cell Distribution Width 13.0 % (11.8-14.3) Platelet Count 105 10^3/uL (140-450) Mean Platelet Volume 9.0 fL (6.9-10.8) Neutrophils (%) (Auto) 50.2 % (37.0-80.0) Lymphocytes (%) (Auto) 34.4 % (10.0-50.0) Monocytes (%) (Auto) 10.2 % (0.0-12.0) Eosinophils (%) (Auto) 4.5 % (0.0-7.0) Basophils (%) (Auto) 0.7 % (0.0-2.0) Neutrophils # (Auto) 3.3 10 ^3/uL (1.6-8.6) Lymphocytes # (Auto) 2.3 10 ^3/uL (0.4-5.4) Monocytes # (Auto) 0.7 10 ^3/uL (0-1.3) Eosinophils # (Auto) 0.3 10 ^3/uL (0-0.8) Basophils # (Auto) 0 10 ^3/uL (0-0.2) Nucleated Red Blood Cells 0.0 % Sodium Level 139 mmol/L (136-145) Potassium Level 4.5 mmol/L (3.5-5.1) Chloride Level 107 mmol/L (98-107) Carbon Dioxide Level 24 mmol/L (20-31) Anion Gap 8 (5-15) Blood Urea Nitrogen 13 mg/dL (9-23) Creatinine 1.09 mg/dL (0.700-1.30) Glomerular Filtration Rate Calc 74 mL/min (>90) BUN/Creatinine Ratio 11.9 (10.0-20.0) Serum Glucose 94 mg/dL (74-106) Calcium Level 9.5 mg/dL (8.7-10.4) Total Bilirubin 0.7 mg/dL (0.2-1.0) Aspartate Amino Transferase (AST) 144 U/L (13-40) Alanine Aminotransferase (ALT) 39 U/L (7-40) Alkaline Phosphatase 49 U/L (46-116) Total Protein 6.4 g/dL (5.7-8.2) Albumin 3.9 g/dL (3.2-4.8) Triglycerides Level 187 mg/dL (< 150) Cholesterol Level 209 mg/dL (< 200) LDL Cholesterol 151 mg/dL (< 100) HDL Cholesterol 35 mg/dL (40-59) Thyroid Stimulating Hormone (TSH) 1.11 uIU/mL (0.55-4.78) Troponin I High Sensitivity 37046 ng/L (</=54) Urine Color Light-yellow (Yellow) Urine Clarity Clear (Clear) Urine pH 8.5 (5.0-9.0) Urine Specific [place] > 1.050 (1.001-1.035) Urine Protein 1+ (Negative) Urine Ketones 1+ (Negative) Urine Blood Negative /uL (Negative) Urine Nitrite Negative (Negative) Urine Bilirubin Negative (Negative) Urine Urobilinogen Normal mg/dL (Negative) Urine Leukocyte Esterase Negative /uL (Negative) Urine RBC 1 /hpf (0 - 3) Urine Microscopic WBC < 1 /HPF (0-3) Urine Squamous Epithelial Cells None seen /hpf (<5) Urine Bacteria None seen /hpf (None Seen) Urine Glucose Normal mg/dL (Normal) Prothrombin Time 10.6 sec (9.3-11.8) Prothrombin Time INR 1.00 (0.9-1.15) Activated Partial Thromboplast Time 24.7 SEC (24.5-34.5) B-Type Natriuretic Peptide 29.50 pg/mL (0-100) Other Laboratory Tests 12/15/24 05:19 Brief Hx & Hospital Course: History of Present Illness This is a 69-year-old male patient with a PMHx of CAD s/p PCI, HTN, Dyslipidemia, and Hypothyroid who who presented to the emergency room with chief complaint of chest pain. The patient reports that the chest pain began at approximately 2:30 p.m. this afternoon. He describes it as unprovoked, constant, pressure-like in nature, and substernal without radiation. Associated symptoms include shortness of breath. The patient called EMS who was brought to the emergency room for further evaluation. While en route to the emergency room, EMS personnel obtained a cardiac strip which revealed STEMI. The patient was given 324 mg of aspirin orally once by EMS personnel. Upon emergency room arrival, a twelve lead electrocardiogram was obtained and revealed normal sinus rhythm with inferior lead ST-elevation myocardial infarction. No labs available at time of assessment given that patient was just brought in via EMS. The patient was loaded with IV heparin bolus 5000 units one time as well as a one time 300 mg of Plavix orally. Patient was emergently taken to the label stitcher. Course of Hospitalization: Patient had PTCA and Stent Placement to LAD and CX artery with CX being culprit lesion causing STEMI. Post op, the patient has had been pain free. EF on echocardiogram was found to be 45% to 50%. Patient will be discharged with follow up with [place] refractory technician per their referral and continue plavix, asa, Toprol XL, and Lisinopril. Dietary modification education has been provided. He is agreeable to this discharge plan. All questions answered. Physical examination General: Alert and Oriented x3. No acute distress. Well-nourished. Eyes: EOMI. Anicteric. HENT: Moist mucous membranes. Lungs: Clear to auscultation bilaterally. No accessory muscle use. Cardiovascular: Regular rate and rhythm. No murmur. No JVD. Abdomen: Soft, non-tender and non-distended. No palpable masses. Extremities: No edema. Non-tender. Skin: No rashes or lesions. Warm. Neurologic: No focal neurological deficits. CN II-XII grossly intact, but not individually tested. Psychiatric: Cooperative. Appropriate mood and affect. Total time spent with patient discussing and formulating plan of care: 35 minutes. This medical document was created using an electronic medical record system with [employer] dictation system. Although this document has been carefully reviewed, there may still be some phonetic and typographical errors. These areas are purely typographical due to imperfections of the software programs, and do not reflect any compromise in the patient's medical care. Consults/Reason for consult Cardiology:STEMI Operations or Procedures 12/13/24: PTCA and stent placement to CX and LAD Condition at Discharge: Good Final Diagnosis/Problems List STEMI PTCA and stenting of the circumflex and LAD. Intravascular ultrasoundevaluation of the circumflex and LAD. Discharge Disposition: Home Discharge Instruct/Medications Diet: Consistent carbohydrate, Cardiac 2g Na,low cholest Activity: No Restrictions, As Tolerated Medications: See medication reconciliation form 36 Discharge Statement: "Patient was advised to return to the ER or call 911 if any headaches, dizziness, shortness of breath, chest pain, abdominal pain, bleeding, fevers, or worsening of medical condition. Patient was counseled about treatment plan, medications, possible side effects, patientverbalized understanding. All questions were answered to the best of my ability. This discharge took greater then 30 minutes in planning, reviewing documentation, counseling the patient, and discussing with other team members." ASSESSMENT ASSESSMENT Assessment STEMI PTCA and stenting of the circumflex and LAD. Intravascular ultrasoundevaluation of the circumflex and LAD. Date of Service: Dec 17, 2024 Billing Provider: MENDY SANCHEZ NP Common Visit Codes: [id number]-QLX/[id number] DISCH DAY >30min MENDY SANCHEZ NP Dec 15, 2024 13:18
[2024-12-15 14:16] VITALS: BP 122/73; PULSE 54; RESP 16; TEMP 98; O2SAT 96
--- NOTE | 2024-12-15 15:11 | ECG ---
[facility] Test Date: 2024-12-13 Test Time: 19:07:00 Pat Name: KRISHAN ARNETT Department: Room: 0279T A Gender: M Post Doctoral Researcher: AMIE : [id number] Requested By: DELICIA GUTIERREZ Order Number: [id number] Reading MD: Delicia Gutierrez Measurements Intervals [place] Rate: 63 P: 41 RI: 152 QRS: -48 QRSD: 104 T: 46 QT: 428 QTc: 437 Interpretive Statements Normal sinus rhythm Left anterior fascicular block ST elevation, consider inferior injury or acute infarct ACUTE [place] Electronically Signed On 12-16-2024 18:12:25 PDT by Delicia Gutierrez Please click the below link to view image of tracing.
== END 2024-12-15 17:05 | disposition home or self-care (01) | DRG 321 ==
LOC: EDBD 17:14 → ER 17:14 → OVERFLOW 18:04 → TELE-WESTW 20:40
PROVIDERS: ADMIT Internal Medicine; ATTEND Nurse Practitioner Acute Care
PROC: 027136Z Dilation of Coronary Artery, Two Arteries with Three Drug-eluting Intraluminal Devices, Percutaneous Approach (ICD-10-PCS; principal; 2024-12-13)
PROC: B211YZZ Fluoroscopy of Multiple Coronary Arteries using Other Contrast (ICD-10-PCS; 2024-12-13)
PROC: B215YZZ Fluoroscopy of Left Heart using Other Contrast (ICD-10-PCS; 2024-12-13)
PROC: 4A023N7 Measurement of Cardiac Sampling and Pressure, Left Heart, Percutaneous Approach (ICD-10-PCS; 2024-12-13)
PROC: B241ZZ3 Ultrasonography of Multiple Coronary Arteries, Intravascular (ICD-10-PCS; 2024-12-13)
DX: T82.855A Stenosis of coronary artery stent, initial encounter (principal); I21.02 ST elevation (STEMI) myocardial infarction involving left anterior descending coronary artery; I50.23 Acute on chronic systolic (congestive) heart failure; J96.00 Acute respiratory failure, unspecified whether with hypoxia or hypercapnia; I25.10 Atherosclerotic heart disease of native coronary artery without angina pectoris; E03.9 Hypothyroidism, unspecified; E78.5 Hyperlipidemia, unspecified; Y83.1 Surgical operation with implant of artificial internal device as the cause of abnormal reaction of the patient, or of later complication, without mention of misadventure at the time of the procedure; Y82.8 Other medical devices associated with adverse incidents; N40.0 Benign prostatic hyperplasia without lower urinary tract symptoms; R74.01 Elevation of levels of liver transaminase levels; I11.0 Hypertensive heart disease with heart failure; Z79.1 Long term (current) use of non-steroidal anti-inflammatories (NSAID); Z79.899 Other long term (current) drug therapy; Z79.891 Long term (current) use of opiate analgesic; Z79.82 Long term (current) use of aspirin; Y92.89 Other specified places as the place of occurrence of the external cause
CPT/HCPCS: 36415; 71045; 80048; 80053; 80061; 81001; 83880; 84443; 84484; 85025; 85610; 85730; 92929; 92941; 93005; 93306; 93458; 99152; 99291; C1887; G0378; J3490